=== PATIENT | female | born 1970 | race Caucasian/White ===

== ENCOUNTER → 2018-04-23 | Outpatient (CLI) | payer OTHER | LOC: CIMAGING 15:39 | PROVIDERS: ATTEND Nurse Practitioner Family | DX: R10.2 Pelvic and perineal pain (principal) | CPT/HCPCS: 76856-PO ==

== ENCOUNTER → 2018-06-16 | Outpatient (CLI) | payer OTHER | LOC: BRMIMAGING 15:01 | PROVIDERS: ATTEND Nurse Practitioner Family | DX: Z12.31 Encounter for screening mammogram for malignant neoplasm of breast (principal) ==

== ENCOUNTER → 2018-08-28 | Outpatient (CLI) | payer OTHER | LOC: BRMIMAGING 13:18 | PROVIDERS: ATTEND Nurse Practitioner Family | DX: Z13.820 Encounter for screening for osteoporosis (principal); M85.89 Other specified disorders of bone density and structure, multiple sites; E07.9 Disorder of thyroid, unspecified; Z79.890 Hormone replacement therapy ==